=== PATIENT | female | born 1935 | race Caucasian/White ===

== ENCOUNTER → 2016-09-18 | Outpatient (CLI) | payer OTHER, MEDICARE ==
--- NOTE | 2016-09-18 18:04 | MA ---
Screening Digital Mammogram Clinical Indications: Routine screening. Technique: Standard cephalocaudal and mediolateral oblique projections are obtained. This examinati on is processed by the [employer] computer-aided detection system. Comparison: Mammograms August 10, 2015, July 07, 2014, July 05, 2013, June 11, 2012, 2010, June 04, 2010, and June 01, 2009. Breast density: Type B: There are scattered areas of fibroglandular density. Findings: CAD was reviewed. No suspicious calcifications, masses, or areas of architectural distorti on are identified. Biopsy clips again noted in the medial right breast. Impression: Negative mammogram. BI-RADS 1. Recommendation: Routine screening is recommended in one year. [facility] will send a result letter to the patient. Negative mammography should not preclude additional workup of a clinically suspicious finding. The patient's information is entered into a reminder system with a target due date for her next mammo gram.
== END ==
LOC: FIMAGING 15:46
DX: Z12.31 Encounter for screening mammogram for malignant neoplasm of breast (principal)
CPT/HCPCS: G0202

== ENCOUNTER → 2017-02-17 | Outpatient (CLI) | payer OTHER, MEDICARE | LOC: FIMAGING 13:44 | PROVIDERS: ATTEND Internal Medicine Rheumatology | DX: Z12.31 Encounter for screening mammogram for malignant neoplasm of breast (principal); Z78.0 Asymptomatic menopausal state; M85.80 Other specified disorders of bone density and structure, unspecified site ==

== ENCOUNTER → 2017-10-07 | Outpatient (CLI) | payer OTHER, MEDICARE | LOC: FIMAGING 13:43 | PROVIDERS: ATTEND Family Medicine | DX: Z12.31 Encounter for screening mammogram for malignant neoplasm of breast (principal) ==

== ENCOUNTER → 2018-12-01 | Outpatient (CLI) | payer OTHER, MEDICARE | LOC: FIMAGING 12:28 | PROVIDERS: ATTEND Family Medicine | DX: Z12.31 Encounter for screening mammogram for malignant neoplasm of breast (principal) ==